=== PATIENT | female | born 1960 ===

== ENCOUNTER 2017-06-09 10:15 | Observation (INO) | payer SELFPAY ==
[2017-06-09] MEDS ORDERED: Sodium Chloride 0.9% 1,000 ML IV STA (10:46)
[2017-06-09 11:01] LABS: BASO % 0.2 % (0.0-2.0); EOS % 0.5 % (0.0-4.0); HEMATOCRIT 41.9 % (34.0-47.0); LYMPH # 0.6 K/uL (1.0-4.3); LYMPH % 6.7 % (20.0-40.0); MEAN CELL VOLUME 80.7 fl (81.0-99.0); MEAN CORPUSCULAR HEMOGLOBIN 26.5 pg (27.0-31.0); MEAN CORPUSCULAR HGB CONC 32.9 g/dL (33.0-37.0); MEAN PLATELET VOLUME 8.4 fl (7.2-11.7); MONO # 0.3 K/uL (0.0-0.8); MONO % 3.5 % (0.0-10.0); NEUT # 7.8 K/uL (1.8-7.0); NEUT % 89.1 % (50.0-75.0); NRBC % 0.1 % (0.0-0.0); PLATELET COUNT 201 K/uL (130-400); RED CELL DISTRIBUTION WIDTH 15.6 % (11.5-14.5); WHITE BLOOD COUNT 8.7 K/uL (4.8-10.8)
[2017-06-09 11:12] LABS: ALKALINE PHOSPHATASE 118 U/L (38-126); ALT/SGPT 43 U/L (9-52); AST/SGOT 46 U/L (14-36); BILIRUBIN,TOTAL 0.8 mg/dl (0.2-1.3); BLOOD UREA NITROGEN 14 mg/dl (7-17); CALCIUM 8.6 mg/dL (8.4-10.2); CARBON DIOXIDE 23 mmol/L (22-30); CHLORIDE 103 mmol/L (98-107); GFR AFRICAN-AMERICAN > 60; GLUCOSE,RANDOM 118 mg/dL (65-105); LIPASE 64 U/L (23-300); SODIUM 137 mmol/l (132-148); TOTAL PROTEIN 8.2 G/DL (6.3-8.2)
--- NOTE | 2017-06-09 11:15 | ED PDOC ---
HPI: Abdomen Time Seen by Provider: 06/09/17 10:45 Chief Complaint (Nursing): Abdominal Pain Chief Complaint (Provider): Abdominal Pain History Per: Patient History/Exam Limitations: no limitations Onset/Duration Of Symptoms: Days (x 2) Outside of [place] travel?: No Current Symptoms Are (Timing): Still Present Additional Complaint(s): Merary is a 56 y/o female who presents to the ED complaining of vomiting and diarrhea since last night. She reports 5 episodes of diarrhea, and multiple of vomiting. Notes generalized abdominal pain and denies fever and chills. States she ate chicken from work yesterday. No chest pain but notes arm pain bilaterally. PMD: None Past Medical History Reviewed: Historical Data, Nursing Documentation, Vital Signs Vital Signs: Last Vital Signs Temp 99 F 06/09/17 10:30 Pulse 86 06/09/17 10:30 Resp 20 06/09/17 10:30 BP 107/69 06/09/17 10:30 Pulse Ox 98 06/09/17 12:55 - Medical History PMH: Diabetes, Gastritis, GERD - Surgical History Surgical History: Appendectomy, Other surgeries: hysterectomy - Family History Family History: States: Hypertension (Mother) - Home Medications Home Medications: Ambulatory Orders Medication Instructions Recorded Azithromycin [Zithromax] 250 mg PO DAILY #6 cap 08/11/14 Codeine Phos/Phenyleph HCl/P 5 ml PO Q6H #100 syr 08/11/14 [Phenergan Vc W/Codeine 120 ml] Benzonatate [Tessalon Perles] 100 mg PO BID PRN #20 sgl 09/28/14 Azithromycin 1 tab PO DAILY #6 tab 04/09/15 Omeprazole Magnesium [Prilosec Otc] 20 mg PO DAILY #30 tcp 04/09/15 Promethazine Hydrochloride 5 ml PO QID PRN #240 ml 04/09/15 [Phenergan] Albuterol HFA [Ventolin HFA 90 1 puff IH ASDIR #1 unit 02/22/16 mcg/actuation (8 g)] Oseltamivir Phosphate [Tamiflu] 75 mg PO BID #10 tab 02/22/16 Tobramycin 1 drop TOP ASDIR #1 bottle 02/22/16 Cetirizine HCl [Zyrtec] 10 mg PO DAILY #30 tab.rapdis 10/23/16 Fluticasone Nasal [Flonase] 2 actuation NS DAILY #1 spr 10/23/16 Olopatadine 0.1% Opht [Patanol 5 1 drop BOTHEYES BID #1 bottle 10/23/16 Ml] - Allergies Allergies/Adverse Reactions: Allergies Allergy/AdvReac Type Severity Reaction Status Date / Time No Known Allergies Allergy Verified 06/09/17 10:30 Review of Systems ROS Statement: Except As Marked, All Systems Reviewed And Found Negative Constitutional: Negative for: Fever, Chills Cardiovascular: Negative for: Chest Pain Gastrointestinal: Positive for: Nausea, Vomiting, Abdominal Pain (generalized), Diarrhea Musculoskeletal: Positive for: Arm Pain (bilaterally) Physical Exam - Reviewed Nursing Documentation Reviewed: Yes Vital Signs Reviewed: Yes - Physical Exam Appears: Positive for: Non-toxic, No Acute Distress Head Exam: Positive for: ATRAUMATIC, NORMAL INSPECTION, NORMOCEPHALIC Skin: Positive for: Normal Color, Warm, Dry Eye Exam: Positive for: EOMI, Normal appearance, PERRL Neck: Positive for: Normal, Painless ROM, Supple Cardiovascular/Chest: Positive for: Regular Rate, Rhythm. Negative for: Murmur Respiratory: Positive for: Normal Breath Sounds. Negative for: Respiratory Distress Gastrointestinal/Abdominal: Positive for: Normal Exam, Bowel Sounds (active), Soft. Negative for: Tenderness Back: Positive for: Normal Inspection Extremity: Positive for: Normal ROM. Negative for: Deformity Neurologic/Psych: Positive for: Alert, Oriented - Laboratory Results Result Diagrams: 06/09/17 10:50 06/09/17 10:50 - ECG ECG Rhythm: Positive for: Sinus Rhythm (NSR 75BPM; NO ECTOPY; T WAVE INV V2-V4 NO OLD EKG TO COMPARE) O2 Sat by Pulse Oximetry: 98 (RA) Pulse Ox Interpretation: Normal - Progress ED Course And Treament: EKG REVIEWED WITH DR. FITZGERALD. PEPCID 20 MG IV X 1 DOSE/ZOFRAN 4 MG IV X 1 DOSE; NS 1 LITER WITH IMPROVEMENT OF SYMPTOMS PATIENT UNSURE TO STAY WILL D/W FAMILY D/W FAMILY. PATIENT AGREEABLE TO STAY FOR TELE OBS EKG CHANGES ATYPICAL CHEST PAIN D/W RESIDENT ADMIT TO MOJGAN Medical Decision Making Medical Decision Making: Time: 10:45 Initial Plan: --EKG --CMP --Lipase --Troponin I --CBC --Urine dipstick --NS IV 1000 ml at 500 mls/hr --Zofran 4 mg IV --Pepcid 20 mg IV --Pending reevaluation and disposition Time: 11:23 --Added magnesium level, urinalysis and urine culture Scribe Attestation: Documented by Carmen Pereira, acting as a scribe for Richard Gonzalez PA-C. Provider Scribe Attestation: All medical record entries made by the Scribe were at my direction and personally dictated by me. I have reviewed the chart and agree that the record accurately reflects my personal performance of the history, physical exam, medical decision making, and the department course for this patient. I have also personally directed, reviewed, and agree with the discharge instructions and disposition. Disposition - Clinical Impression Clinical Impression: Vomiting, EKG abnormality - Patient ED Disposition Is Patient to be Admitted: Yes - Disposition Disposition Time: 14:06 Condition: FAIR Forms: [employer] (Egyptian) Print Language: UKRAINIAN - Pt Status Changed To: Hospital Disposition Of: Observation
[2017-06-09 11:24] LABS: POTASSIUM 4.2 MMOL/L (3.6-5.0)
[2017-06-09 11:40] LABS: RBC URINE 9 /hpf (0-3); URINE BILIRUBIN NEGATIVE (NEGATIVE); URINE BLOOD SMALL (NEGATIVE); URINE COLOR YELLOW (YELLOW); URINE GLUCOSE (UA) NEG (Normal); URINE KETONE NEGATIVE (NEGATIVE); URINE LEUKOCYTE ESTERASE TRACE Leu/uL (Negative); URINE PROTEIN NEGATIVE (NEGATIVE); URINE UROBILINOGEN 0.2-1.0 mg/dL (0.2-1.0); WBC URINE 1 /hpf (0-5)
[2017-06-09 13:11] LABS: EOSINOPHIL 1 % (0-7); NEUTROPHIL 86 % (42-75); TOTAL CELLS COUNTED 100
--- NOTE | 2017-06-09 15:40 | CP.PCM.HP ---
History of Present Illness - History of Present Illness History of Present Illness: 56 year old female presented with one day history of multiple episodes of vomiting and diarrhea with associated abdominal pain. She was vomiting all last night, unable to hold food or liquids down. Vomiting is nonbloody, nonbilious. She is unable to quantify times she vomited or had diarrhea but 'it was a lot'. She endorses abdominal pain, worst in midepigastrium. She has not taken any medications for these symptoms. She denies sick contacts, but admits her grandson had similar symptoms a few days ago. She does not think this is related to her illness. She has not chest pain, dyspnea or PMH: prediabetes Medications: none, takes vitamins Allergies: NKDA Surgical: hysterectomy, appendectomy Social: denies tobacco, etoh, illicit drug use. Present on Admission - Present on Admission Any Indicators Present on Admission: No Past Patient History - Infectious Disease Hx of Infectious Diseases: None - Past Social History Smoking Status: Never Smoked - ENDOCRINE/METABOLIC Other/Comment: borderline diabetic - GASTROINTESTINAL Hx Gastritis: Yes - PSYCHIATRIC Hx Substance Use: No - SURGICAL HISTORY Hx Appendectomy: Yes - ANESTHESIA Hx Anesthesia: Yes Hx Anesthesia Reactions: No Meds Allergies/Adverse Reactions: Allergies Allergy/AdvReac Type Severity Reaction Status Date / Time No Known Allergies Allergy Verified 06/09/17 10:30 Physical Exam - Constitutional Appears: Other (uncomfortable) - Head Exam Head Exam: ATRAUMATIC, NORMAL INSPECTION, NORMOCEPHALIC - Eye Exam Eye Exam: EOMI, Normal appearance, PERRL - ENT Exam ENT Exam: Mucous Membranes Dry, Normal Exam - Respiratory Exam Respiratory Exam: Clear to Auscultation Bilateral, NORMAL BREATHING PATTERN. absent: Rales, Rhonchi, Wheezes, Respiratory Distress - Cardiovascular Exam Cardiovascular Exam: REGULAR RHYTHM. absent: +S1, +S2 Additional comments: no murmurs - GI/Abdominal Exam GI & Abdominal Exam: Hypoactive Bowel Sounds, Soft, Tenderness (midepigastric). absent: Distended, Guarding, Hyperactive Bowel Sounds, Organomegaly - Extremities Exam Extremities exam: Negative for: pedal edema, tenderness - Neurological Exam Neurological exam: Alert, CN II-XII Intact, Oriented x3, Reflexes Normal - Psychiatric Exam Psychiatric exam: Normal Affect, Normal Mood - Skin Skin Exam: Dry, Intact, Normal Color, Warm Results - Vital Signs Recent Vital Signs: Last Vital Signs Temp 99 F 06/09/17 10:30 Pulse 86 06/09/17 10:30 Resp 20 06/09/17 10:30 BP 107/69 06/09/17 10:30 Pulse Ox 98 06/09/17 14:07 - Labs Result Diagrams: 06/09/17 10:50 06/09/17 10:50 Assessment & Plan - Assessment and Plan (Free Text) Assessment: 56 year old female presented with hx of abdominal pain, nausea, vomiting and diarrhea, unable to tolerate po intake. Likely 2' to acute gastroenteritis. Given patients history of multiple intra- abdominal surgeries, the possiblity of partial small bowel obstruction not excluded. Patient has +bowel sounds and is passing flatus. She has an appetite despite some nausea. She does not have any metabolic derangements. Will start patient on clear liquid diet as well as IVF. Can consider abdominal xray if patient worsens clinically. Will monitor closely. # Abdominal pain # T wave abnormality on EKG # Microscopic Hematuria # DVT prophylaxis -IV hydration -Zofran PRN nausea -Tylenol for fever/headaches -Cardiology consult -[facility]
--- NOTE | 2017-06-09 15:56 | RAD ---
PROCEDURE: CHEST RADIOGRAPH, 1 VIEW HISTORY: ROUTINE;EKG CHANGES COMPARISON: 02/22/2016 FINDINGS: LUNGS: Clear. PLEURA: No pneumothorax or pleural fluid seen. CARDIOVASCULAR: No radiographic findings to suggest acute or significant cardiovascular disease. OSSEOUS STRUCTURES: No significant abnormalities. VISUALIZED UPPER ABDOMEN: Normal. OTHER FINDINGS: None. IMPRESSION: No active disease. No acute/significant interval changes.
[2017-06-09] MEDS ORDERED: Lactated Ringer's 1,000 ML IV SCH (17:30)
[2017-06-09 17:33] VITALS: BMI 27.4
[2017-06-10] MEDS: Lactated Ringer's 1,000 ML IV SCH ×2 (04:11→13:32)
[2017-06-10 08:11] VITALS: RESP 18
--- NOTE | 2017-06-10 08:36 | CP.PCM.CON ---
History of Present Illness - History of Present Illness History of Present Illness: 56 year old female presented with one day history of multiple episodes of vomiting and diarrhea with associated abdominal pain. She was vomiting all last night, unable to hold food or liquids down. Vomiting is nonbloody, nonbilious. worst in midepigastrium. She has not chest pain, dyspnea Cardiology Consult called for abnormal EKG EKG: T wave inversion anterior precordial leads Pt denies any cardiac Hx chest pain / Palpitations / SOB / MENARD Troponin: neg Past Patient History - Infectious Disease Hx of Infectious Diseases: None - Past Medical History & Family History Past Medical History?: Yes - Past Social History Smoking Status: Never Smoked - CARDIAC Hx Cardiac Disorders: No - PULMONARY Hx Respiratory Disorders: No - NEUROLOGICAL Hx Neurological Disorder: No - HEENT Hx HEENT Problems: No - RENAL Hx Chronic Kidney Disease: No - ENDOCRINE/METABOLIC Other/Comment: borderline diabetic - HEMATOLOGICAL/ONCOLOGICAL Hx Blood Disorders: No - INTEGUMENTARY Hx Dermatological Problems: No - MUSCULOSKELETAL/RHEUMATOLOGICAL Hx Musculoskeletal Disorders: No Hx Falls: No - GASTROINTESTINAL Hx Gastritis: Yes - GENITOURINARY/GYNECOLOGICAL Hx Genitourinary Disorders: No - PSYCHIATRIC Hx Substance Use: No - SURGICAL HISTORY Hx Appendectomy: Yes - ANESTHESIA Hx Anesthesia: Yes Hx Anesthesia Reactions: No Meds Allergies/Adverse Reactions: Allergies Allergy/AdvReac Type Severity Reaction Status Date / Time No Known Allergies Allergy Verified 06/09/17 10:30 - Medications Medications: Current Medications Acetaminophen (Tylenol 325mg Tab) 650 mg PO Q6 PRN PRN Reason: Headache Last Admin: 06/09/17 18:19 Dose: 650 mg Enoxaparin Sodium (Lovenox) 40 mg SC DAILY [facility] PRN Reason: Protocol Last Admin: 06/10/17 08:20 Dose: 40 mg Famotidine (Pepcid) 20 mg PO BID [facility] Last Admin: 06/10/17 08:20 Dose: 20 mg Lactated Ringer's (Lactated Ringer's) 1,000 mls @ 125 mls/hr IV .Q8H [facility] Last Admin: 06/10/17 04:11 Dose: Not Given Ondansetron HCl (Zofran Inj) 4 mg IVP Q6 PRN PRN Reason: Nausea/Vomiting Physical Exam - Respiratory Exam Respiratory Exam: NORMAL BREATHING PATTERN - Cardiovascular Exam Cardiovascular Exam: REGULAR RHYTHM Results - Vital Signs Recent Vital Signs: Last Vital Signs Temp 98.6 F 06/10/17 08:00 Pulse 66 06/10/17 08:00 Resp 18 06/10/17 08:00 BP 102/60 06/10/17 08:00 Pulse Ox 98 06/10/17 08:00 - Labs Result Diagrams: 06/09/17 10:50 06/09/17 10:50 Labs: Laboratory Results - last 24 hr 06/09/17 06/10/17 19:30 05:33 POC Glucose (mg/dL) 101 Troponin I < 0.0120 Assessment & Plan (1) EKG abnormality Assessment and Plan: Cardiac mesa the pt appears stable Status: Acute (2) Vomiting Status: Acute
[2017-06-10] MEDS ORDERED: Enoxaparin 40 mg Syringe SC SCH (09:00)
[2017-06-10 12:40] VITALS: BP 107/70; PULSE 63; TEMP 98.5; O2SAT 99
--- NOTE | 2017-06-10 13:12 | CP.PCM.DIS ---
Provider - Provider Date of Admission: 06/09/17 14:20 Attending physician: Liliana Morales MD Primary care physician: Dr Estefany Nunez at [facility]. Consults: Cardiology: Julio Leon Time Spent in preparation of Discharge (in minutes): 30 Hospital Course - Lab Results Lab Results: Most Recent Lab Values WBC 8.7 K/uL (4.8-10.8) D 06/09/17 10:50 RBC 5.19 Mil/uL (3.80-5.20) 06/09/17 10:50 Hgb 13.8 g/dL (12.0-16.0) 06/09/17 10:50 Hct 41.9 % (34.0-47.0) 06/09/17 10:50 MCV 80.7 fl (81.0-99.0) L D 06/09/17 10:50 MCH 26.5 pg (27.0-31.0) L 06/09/17 10:50 MCHC 32.9 g/dL (33.0-37.0) L 06/09/17 10:50 RDW 15.6 % (11.5-14.5) H 06/09/17 10:50 Plt Count 201 K/uL (130-400) 06/09/17 10:50 MPV 8.4 fl (7.2-11.7) 06/09/17 10:50 Neut % (Auto) 89.1 % (50.0-75.0) H 06/09/17 10:50 Lymph % (Auto) 6.7 % (20.0-40.0) L 06/09/17 10:50 [place] % (Auto) 3.5 % (0.0-10.0) 06/09/17 10:50 Eos % (Auto) 0.5 % (0.0-4.0) 06/09/17 10:50 Baso % (Auto) 0.2 % (0.0-2.0) 06/09/17 10:50 Neut # 7.8 K/uL (1.8-7.0) H 06/09/17 10:50 Lymph # 0.6 K/uL (1.0-4.3) L 06/09/17 10:50 [place] # 0.3 K/uL (0.0-0.8) 06/09/17 10:50 Eos # 0.0 K/uL (0.0-0.7) 06/09/17 10:50 Baso # 0.0 K/uL (0.0-0.2) 06/09/17 10:50 Neutrophils % (Manual) 86 % (42-75) H 06/09/17 10:50 Lymphocytes % (Manual) 7 % (20-50) L 06/09/17 10:50 Monocytes % (Manual) 6 % (0-10) 06/09/17 10:50 Eosinophils % (Manual) 1 % (0-7) 06/09/17 10:50 Platelet Estimate Normal (NORMAL) 06/09/17 10:50 RBC Morphology Normal (NORMAL) 06/09/17 10:50 Sodium 137 mmol/l (132-148) 06/09/17 10:50 Potassium 4.2 MMOL/L (3.6-5.0) 06/09/17 10:50 Chloride 103 mmol/L (98-107) 06/09/17 10:50 Carbon Dioxide 23 mmol/L (22-30) 06/09/17 10:50 Anion Gap 15 (10-20) 06/09/17 10:50 BUN 14 mg/dl (7-17) 06/09/17 10:50 Creatinine 0.5 mg/dL (0.7-1.2) L 06/09/17 10:50 Est GFR ( Amer) > 60 06/09/17 10:50 Est GFR (Non-Af Amer) > 60 06/09/17 10:50 POC Glucose (mg/dL) 119 mg/dL (65-110) H 06/10/17 11:23 Random Glucose 118 mg/dL (65-105) H 06/09/17 10:50 Calcium 8.6 mg/dL (8.4-10.2) 06/09/17 10:50 Magnesium 1.8 MG/DL (1.6-2.3) 06/09/17 11:25 Total Bilirubin 0.8 mg/dl (0.2-1.3) 06/09/17 10:50 AST 46 U/L (14-36) H 06/09/17 10:50 ALT 43 U/L (9-52) 06/09/17 10:50 Alkaline Phosphatase 118 U/L (38-126) 06/09/17 10:50 Troponin I < 0.0120 ng/mL (0.00-0.120) 06/09/17 19:30 Total Protein 8.2 G/DL (6.3-8.2) 06/09/17 10:50 Albumin 4.1 g/dL (3.5-5.0) 06/09/17 10:50 Globulin 4.0 gm/dL (2.2-3.9) H 06/09/17 10:50 Albumin/Globulin Ratio 1.0 (1.0-2.1) 06/09/17 10:50 Lipase 64 U/L (23-300) 06/09/17 10:50 Urine Color Yellow (YELLOW) 06/09/17 11:25 Urine Clarity Slighty-cloudy (Clear) 06/09/17 11:25 Urine pH 6.0 (5.0-8.0) 06/09/17 11:25 Ur Specific [place] 1.019 (1.003-1.030) 06/09/17 11:25 Urine Protein Negative mg/dL (NEGATIVE) 06/09/17 11:25 Urine Glucose (UA) Neg mg/dL (Normal) 06/09/17 11:25 Urine Ketones Negative mg/dL (NEGATIVE) 06/09/17 11:25 Urine Blood Small (NEGATIVE) 06/09/17 11:25 Urine Nitrate Negative (NEGATIVE) 06/09/17 11:25 Urine Bilirubin Negative (NEGATIVE) 06/09/17 11:25 Urine Urobilinogen 0.2-1.0 mg/dL (0.2-1.0) 06/09/17 11:25 Ur Leukocyte Esterase Trace [place]/uL (Negative) 06/09/17 11:25 Urine RBC (Auto) 9 /hpf (0-3) H 06/09/17 11:25 Urine Microscopic WBC 1 /hpf (0-5) 06/09/17 11:25 Ur Squamous Epith Cells 3 /hpf (0-5) 06/09/17 11:25 - Hospital Course Hospital Course: 56 y/o F admitted for excessive vomiting. Pt was complaining of severe epigastric abdominal pain, multiple episodes of non-bloody non-bilious vomiting and diarrhea. EKG consistent with T wave abnormalities in V3-4. CXR was unremarkable. Repeated EKG showed same changes as previous EKG.Treatment provided: -IV fluids. -Zofran 4 mg IVP PRN, -Tylenol 325mg PO PRN, -Famotidine 20 mg PO -Cardiology consult: Cardiacwise stable as per Dr Marino. Pt discharged, stable, with NO abdominal pain, nausea or vomiting. Pt instructed to follow up PMD within 1 week. - Date & Time of H&P Date of H&P: 06/09/17 Time of H&P: 15:40 Discharge Exam - Head Exam Head Exam: ATRAUMATIC, NORMAL INSPECTION, NORMOCEPHALIC - Eye Exam Eye Exam: EOMI, Normal appearance, PERRL - ENT Exam ENT Exam: Mucous Membranes Moist - Neck Exam Neck exam: Full Rom - Respiratory Exam Respiratory Exam: Chest Wall Tenderness, Clear to PA & Lateral, NORMAL BREATHING PATTERN - Cardiovascular Exam Cardiovascular Exam: REGULAR RHYTHM - GI/Abdominal Exam GI & Abdominal Exam: Normal Bowel Sounds, Unremarkable. absent: Distended, Guarding, Tenderness Discharge Plan - Follow Up Plan Condition: FAIR Disposition: HOME/ ROUTINE Instructions: Gastroenteritis (DC) Additional Instructions: -Pt instructed to follow conservative management: stay well hydrated with electrolyzed PO beverage, bland diet that includes banana, rice, apple sauce, toasts and plain yogurt. -F/u with PMD, [facility], within 1 week. Need to further evaluate cardiac function. -Return to ER if not able to hold food or liquids down, vomiting, severe abdominal pain, fever, chest pain, shortness of breath or diaphoresis.
--- NOTE | 2017-06-10 13:15 | CP.PCM.DIS ---
Provider - Provider Date of Admission: 06/09/17 14:20 Attending physician: Liliana Morales MD Primary care physician: PMD: Dr. Estfeany Nunez at [facility]. Time Spent in preparation of Discharge (in minutes): 30 Hospital Course - Lab Results Lab Results: Most Recent Lab Values WBC 8.7 K/uL (4.8-10.8) D 06/09/17 10:50 RBC 5.19 Mil/uL (3.80-5.20) 06/09/17 10:50 Hgb 13.8 g/dL (12.0-16.0) 06/09/17 10:50 Hct 41.9 % (34.0-47.0) 06/09/17 10:50 MCV 80.7 fl (81.0-99.0) L D 06/09/17 10:50 MCH 26.5 pg (27.0-31.0) L 06/09/17 10:50 MCHC 32.9 g/dL (33.0-37.0) L 06/09/17 10:50 RDW 15.6 % (11.5-14.5) H 06/09/17 10:50 Plt Count 201 K/uL (130-400) 06/09/17 10:50 MPV 8.4 fl (7.2-11.7) 06/09/17 10:50 Neut % (Auto) 89.1 % (50.0-75.0) H 06/09/17 10:50 Lymph % (Auto) 6.7 % (20.0-40.0) L 06/09/17 10:50 [place] % (Auto) 3.5 % (0.0-10.0) 06/09/17 10:50 Eos % (Auto) 0.5 % (0.0-4.0) 06/09/17 10:50 Baso % (Auto) 0.2 % (0.0-2.0) 06/09/17 10:50 Neut # 7.8 K/uL (1.8-7.0) H 06/09/17 10:50 Lymph # 0.6 K/uL (1.0-4.3) L 06/09/17 10:50 [place] # 0.3 K/uL (0.0-0.8) 06/09/17 10:50 Eos # 0.0 K/uL (0.0-0.7) 06/09/17 10:50 Baso # 0.0 K/uL (0.0-0.2) 06/09/17 10:50 Neutrophils % (Manual) 86 % (42-75) H 06/09/17 10:50 Lymphocytes % (Manual) 7 % (20-50) L 06/09/17 10:50 Monocytes % (Manual) 6 % (0-10) 06/09/17 10:50 Eosinophils % (Manual) 1 % (0-7) 06/09/17 10:50 Platelet Estimate Normal (NORMAL) 06/09/17 10:50 RBC Morphology Normal (NORMAL) 06/09/17 10:50 Sodium 137 mmol/l (132-148) 06/09/17 10:50 Potassium 4.2 MMOL/L (3.6-5.0) 06/09/17 10:50 Chloride 103 mmol/L (98-107) 06/09/17 10:50 Carbon Dioxide 23 mmol/L (22-30) 06/09/17 10:50 Anion Gap 15 (10-20) 06/09/17 10:50 BUN 14 mg/dl (7-17) 06/09/17 10:50 Creatinine 0.5 mg/dL (0.7-1.2) L 06/09/17 10:50 Est GFR ( Amer) > 60 06/09/17 10:50 Est GFR (Non-Af Amer) > 60 06/09/17 10:50 POC Glucose (mg/dL) 119 mg/dL (65-110) H 06/10/17 11:23 Random Glucose 118 mg/dL (65-105) H 06/09/17 10:50 Calcium 8.6 mg/dL (8.4-10.2) 06/09/17 10:50 Magnesium 1.8 MG/DL (1.6-2.3) 06/09/17 11:25 Total Bilirubin 0.8 mg/dl (0.2-1.3) 06/09/17 10:50 AST 46 U/L (14-36) H 06/09/17 10:50 ALT 43 U/L (9-52) 06/09/17 10:50 Alkaline Phosphatase 118 U/L (38-126) 06/09/17 10:50 Troponin I < 0.0120 ng/mL (0.00-0.120) 06/09/17 19:30 Total Protein 8.2 G/DL (6.3-8.2) 06/09/17 10:50 Albumin 4.1 g/dL (3.5-5.0) 06/09/17 10:50 Globulin 4.0 gm/dL (2.2-3.9) H 06/09/17 10:50 Albumin/Globulin Ratio 1.0 (1.0-2.1) 06/09/17 10:50 Lipase 64 U/L (23-300) 06/09/17 10:50 Urine Color Yellow (YELLOW) 06/09/17 11:25 Urine Clarity Slighty-cloudy (Clear) 06/09/17 11:25 Urine pH 6.0 (5.0-8.0) 06/09/17 11:25 Ur Specific [place] 1.019 (1.003-1.030) 06/09/17 11:25 Urine Protein Negative mg/dL (NEGATIVE) 06/09/17 11:25 Urine Glucose (UA) Neg mg/dL (Normal) 06/09/17 11:25 Urine Ketones Negative mg/dL (NEGATIVE) 06/09/17 11:25 Urine Blood Small (NEGATIVE) 06/09/17 11:25 Urine Nitrate Negative (NEGATIVE) 06/09/17 11:25 Urine Bilirubin Negative (NEGATIVE) 06/09/17 11:25 Urine Urobilinogen 0.2-1.0 mg/dL (0.2-1.0) 06/09/17 11:25 Ur Leukocyte Esterase Trace [place]/uL (Negative) 06/09/17 11:25 Urine RBC (Auto) 9 /hpf (0-3) H 06/09/17 11:25 Urine Microscopic WBC 1 /hpf (0-5) 06/09/17 11:25 Ur Squamous Epith Cells 3 /hpf (0-5) 06/09/17 11:25 - Hospital Course Hospital Course: 56 y/o F admitted for excessive vomiting. Pt was complaining of severe epigastric abdominal pain, multiple episodes of non-bloody non-bilious vomiting and diarrhea. EKG consistent with T wave abnormalities in V3-4. CXR was unremarkable. Treatment provided: -IV fluids. -Zofran 4 mg IVP PRN, -Tylenol 325mg PO PRN, -Famotidine 20 mg PO -Cardiology consult Pt discharged, stable, with NO abdominal pain, nausea or vomiting. - Date & Time of H&P Date of H&P: 06/09/17 Time of H&P: 15:40 Discharge Exam - Head Exam Head Exam: ATRAUMATIC, NORMAL INSPECTION - Eye Exam Eye Exam: EOMI, Normal appearance, PERRL - ENT Exam ENT Exam: Mucous Membranes Moist - Neck Exam Neck exam: Full Rom - Respiratory Exam Respiratory Exam: Clear to PA & Lateral, NORMAL BREATHING PATTERN - Cardiovascular Exam Cardiovascular Exam: REGULAR RHYTHM - GI/Abdominal Exam GI & Abdominal Exam: Normal Bowel Sounds, Unremarkable. absent: Distended, Guarding, Tenderness - Neurological Exam Neurological exam: Alert, Oriented x3 Discharge Plan - Follow Up Plan Condition: FAIR Disposition: HOME/ ROUTINE Instructions: Gastroenteritis (DC) Additional Instructions: -Pt instructed to follow conservative management: stay well hydrated with electrolyzed PO beverage, bland diet that includes banana, rice, apple sauce, toasts and plain yogurt. -F/u with PMD, [facility], within 1 week. -Return to ER if not able to hold food or liquids down, vomiting, severe abdominal pain or fever.
--- NOTE | 2017-06-11 07:59 | CARD ---
APPROVED REPORT EKG Measurement Heart [id number] FL 130P28 [id number] <Conclusion> Sinus bradycardia T wave abnormality, consider anterior ischemia Abnormal ECG
--- NOTE | 2017-06-11 11:21 | CARD ---
APPROVED REPORT EKG Measurement Heart [id number] [place] 136P20 [id number] <Conclusion> Normal sinus rhythm T wave abnormality, consider anterior ischemia Abnormal ECG
== END 2017-06-10 14:56 | disposition home or self-care (01) ==
LOC: H.ER 10:15 → H.ERHOLD 14:20 → H.TEL 16:48
PROVIDERS: ADMIT Family Medicine Geriatric Medicine; ATTEND Family Medicine Geriatric Medicine
DX: K52.9 Noninfective gastroenteritis and colitis, unspecified (principal); E11.9 Type 2 diabetes mellitus without complications; K21.9 Gastro-esophageal reflux disease without esophagitis; R31.29 Other microscopic hematuria; Z82.49 Family history of ischemic heart disease and other diseases of the circulatory system; Z90.49 Acquired absence of other specified parts of digestive tract; K29.70 Gastritis, unspecified, without bleeding; M79.603 Pain in arm, unspecified; R00.2 Palpitations; R07.9 Chest pain, unspecified; R51 Headache; R94.31 Abnormal electrocardiogram [ECG] [EKG]
CPT/HCPCS: 71010; 80053; 81003; 82948; 83690; 83735; 84484; 85025; 87086; 93005; 96361; 96372; 96374; 96375; 99284; G0378; J1650; J2405; J7040; J7120